=== PATIENT | female | born 1975 | race Two or more races ===

== ENCOUNTER 2021-08-19 07:12 | Outpatient (CLI) | payer OTHER | END 2021-08-19 07:13 | disposition home or self-care (01) | LOC: NUCLEAR 07:12 | PROVIDERS: ATTEND Internal Medicine Cardiovascular Disease | DX: R07.9 Chest pain, unspecified (principal) | CPT/HCPCS: 78452; 93017; A9500; J0153 ==

== ENCOUNTER 2022-10-25 09:46 | Outpatient (CLI) | payer OTHER | END 2022-10-25 09:57 | disposition home or self-care (01) | LOC: MAMO-SONO 09:46 | DX: Z12.31 Encounter for screening mammogram for malignant neoplasm of breast (principal) ==